=== PATIENT | male | born 1965 | race Caucasian/White ===

== ENCOUNTER 2020-10-23 08:30 | Outpatient (REF) | payer OTHER, SELFPAY ==
--- NOTE | 2020-10-23 09:16 | XR_ITS ---
EXAMINATION: BILATERAL KNEE X-RAY CLINICAL INFORMATION: Pain COMPARISON: Previous exams most recent June 2018 TECHNIQUE: 3 views of each knee FINDINGS: Right: Bone alignment is normal. No fracture or dislocation is seen and there is joint space narrowing at the medial femoral tibial joint. There are small osteophytes at the patellofemoral joint. There is a small joint effusion. Left: Bone alignment is normal. No fracture or dislocation is seen. There is joint space narrowing at the medial femoral tibial joint. There are osteophytes at the patellofemoral joint. There is an osteophyte at the quadriceps tendon insertion. There is a small joint effusion. XR/XR knee standing BI IMPRESSION: Bilateral arthritis and small joint effusions.
--- NOTE | 2020-10-23 09:16 | XR_ITS ---
EXAMINATION: BILATERAL KNEE X-RAY CLINICAL INFORMATION: Pain COMPARISON: Previous exams most recent June 2018 TECHNIQUE: 3 views of each knee FINDINGS: Right: Bone alignment is normal. No fracture or dislocation is seen and there is joint space narrowing at the medial femoral tibial joint. There are small osteophytes at the patellofemoral joint. There is a small joint effusion. Left: Bone alignment is normal. No fracture or dislocation is seen. There is joint space narrowing at the medial femoral tibial joint. There are osteophytes at the patellofemoral joint. There is an osteophyte at the quadriceps tendon insertion. There is a small joint effusion. XR/XR knee RT 2V IMPRESSION: Bilateral arthritis and small joint effusions.
--- NOTE | 2020-10-23 09:16 | XR_ITS ---
EXAMINATION: BILATERAL KNEE X-RAY CLINICAL INFORMATION: Pain COMPARISON: Previous exams most recent June 2018 TECHNIQUE: 3 views of each knee FINDINGS: Right: Bone alignment is normal. No fracture or dislocation is seen and there is joint space narrowing at the medial femoral tibial joint. There are small osteophytes at the patellofemoral joint. There is a small joint effusion. Left: Bone alignment is normal. No fracture or dislocation is seen. There is joint space narrowing at the medial femoral tibial joint. There are osteophytes at the patellofemoral joint. There is an osteophyte at the quadriceps tendon insertion. There is a small joint effusion. XR/XR knee LT 2V IMPRESSION: Bilateral arthritis and small joint effusions.
== END 2020-10-23 08:31 | disposition home or self-care (01) ==
LOC: HO.HOSX 08:30
PROVIDERS: Visit Provider Orthopaedic Surgery
DX: M25.561 Pain in right knee (principal); M25.562 Pain in left knee; M17.0 Bilateral primary osteoarthritis of knee
CPT/HCPCS: 20610; 73560; 73565; 99212; J1040

== ENCOUNTER 2021-09-20 07:29 | Outpatient (REF) | payer OTHER, SELFPAY ==
[2021-09-20 11:06] LABS: MANUAL DIFF FLAG NO
[2021-09-20 11:15] LABS: Basophils Percent Auto 0.6 % (0-2); Eosinophils Absolute Auto 0.3 X10*3/uL (0.0-0.4); Eosinophils Percent Auto 4.8 % (0-4); Hematocrit 41.9 % (42.0-52.0); Hemoglobin 14.1 g/dl (14.0-18.0); Imm Gran Abs Auto 0.01 X10*3/uL (0.00-0.03); Imm Gran Pct Auto 0.2 % (0.0-0.4); Lymphocytes Absolute Auto 2.7 X10*3/uL (1.2-4.9); Lymphocytes Percent Auto 40.7 % (20-40); Mean Corpuscular HGB Conc 33.7 g/dl (31.0-36.0); Mean Corpuscular Hemoglobin 30.6 pg (27.0-33.0); Mean Corpuscular Volume 90.9 fL (80.0-98.0); Mean Platelet Volume 9.4 fL (9.4-12.4); Monocytes Absolute Auto 0.5 X10*3/uL (0.1-1.2); Monocytes Percent Auto 8.2 % (2-11); Neutrophils Percent Auto 45.5 % (45-73); Platelet Count 290 X10*3/uL (160-400); Red Blood Count 4.61 X10*6/uL (4.60-5.80); Red Cell Distribution Width 11.7 % (11.0-16.0); White Blood Count 6.6 X10*3/uL (4.8-10.8)
[2021-09-20 11:42] LABS: Alanine Aminotransferase 16 U/L (0-40); Albumin Level 4.3 g/dL (3.5-5.0); Alkaline Phosphatase 62 U/L (39-117); Anion Gap 11 (12-20); Aspartate Amino Transferase 18 U/L (5-37); Bilirubin Total 0.9 mg/dL (0.0-1.0); Blood Urea Nitrogen 14 mg/dL (9-16); Calcium 9.4 mg/dL (8.4-10.2); Carbon Dioxide 26 mmol/L (22-29); Chloride 106 mmol/L (96-108); Cholesterol 211 mg/dL; Estimated Glomerular Filt Rate > 60; Glucose Fasting 103 mg/dL (60-99); HDL Cholesterol 63 mg/dL; LDL Cholesterol Calculated 133 mg/dl; Potassium 3.4 mmol/L (3.3-5.1); Sodium 140 mmol/L (135-145); Total Protein 6.8 g/dL (6.5-8.0); Triglycerides 76 mg/dL
[2021-09-20 11:49] LABS: Ferritin 580 ng/mL (20-250); Prostate Specific Antigen Scr 0.23 ng/mL (<0.05-4.0); TSH reflex Free T4 2.26 uIU/mL (0.32-4.0)
[2021-09-20 13:10] LABS: Appearance Urine CLEAR; Color Urine YELLOW; Glucose Urine UA NEG (NEG); Leukocyte Esterase Urine NEG (NEG); Nitrite Urine NEG (NEG); Specific Gravity - Urine >= 1.030 (1.005-1.025); Urine Blood NEG (NEG); Urine Ketones NEG (NEG); Urine Protein NEG (NEG-TRACE)
== END 2021-09-20 07:30 | disposition home or self-care (01) ==
LOC: HO.HMGCLDS 07:29
PROVIDERS: Visit Provider Nurse Practitioner Family
DX: Z00.00 Encounter for general adult medical examination without abnormal findings (principal); L29.9 Pruritus, unspecified; Z12.5 Encounter for screening for malignant neoplasm of prostate
CPT/HCPCS: 36415; 80053; 80061; 81003; 82728; 84153; 84443; 85025

== ENCOUNTER 2021-09-26 09:42 | Outpatient (REF) | payer OTHER, SELFPAY ==
[2021-09-26 13:02] LABS: Iron 110 mcg/dL (45-160); Percent Iron Saturation 41 % (15-50); Total Iron Binding Capacity 267 mcg/dL (228-428); Unsaturated Iron Binding 157 ug/dL
[2021-09-26 13:29] LABS: Ferritin 450 ng/mL (20-250)
== END 2021-09-26 09:43 | disposition home or self-care (01) ==
LOC: HO.HMGCLDS 09:42
PROVIDERS: PCP Nurse Practitioner Family; Visit Provider Nurse Practitioner Family
DX: R79.89 Other specified abnormal findings of blood chemistry (principal)
CPT/HCPCS: 36415; 81256; 82728; 83540

== ENCOUNTER 2021-10-01 11:45 | Outpatient (REF) | payer OTHER, SELFPAY | END 2021-10-01 11:46 | disposition home or self-care (01) | LOC: HO.LNP 11:45 | PROVIDERS: Visit Provider Physician Assistant Medical | DX: Z20.822 Contact with and (suspected) exposure to COVID-19 (principal); J01.90 Acute sinusitis, unspecified | CPT/HCPCS: U0003; U0005 ==

== ENCOUNTER 2021-10-11 09:15 | Outpatient (REF) | payer OTHER, SELFPAY ==
[2021-10-11 11:40] LABS: C Reactive Protein 0.55 mg/dL (< or = 0.50)
[2021-10-11 11:45] LABS: Erythrocyte Sedimentation Rate 5 MM/HR (0-15)
== END 2021-10-11 09:16 | disposition home or self-care (01) ==
LOC: HO.HMGCLDS 09:15
PROVIDERS: PCP Nurse Practitioner Family; Visit Provider Nurse Practitioner Family
DX: R79.89 Other specified abnormal findings of blood chemistry (principal)
CPT/HCPCS: 36415; 85652; 86140

== ENCOUNTER → 2021-11-17 14:48 | Outpatient (REF) | payer OTHER, SELFPAY ==
--- NOTE | 2021-11-17 14:51 | CA_ITS ---
Transthoracic Echocardiogram Patient (Last, First, Middle): Gurmeet Medina B Gender: Male Date of : 1965 Age: 56 Procedure Date: 11/17/2021 Procedure Type: Transthoracic Echocardiogram Location: OP Height: 175.26 cm Weight: 102.06 kg BSA: 2.17 m2 Heart Rate: bpm BP: 132 / 80 mmHg Infrastructure Engineer: KASEY Ugarte MD: Gil Garcia [facility] Surgical Sales Representative: Tre Al MD Symptoms: R01.1 - Cardiac murmur, unspecified Study Quality: Fair/Contrast ECG Rhythm: Sinus Conclusions: - 1. Normal LV systolic function with normal filling pattern 2. Normal cardiac valvular Doppler 3. Normal RV systolic pressure 4. No gross pericardial effusion Findings Procedure Information Contrast agent, definity, is being given per protocol without apparent complications. Left Ventricle Normal left ventricular size, thickness, and systolic function. The visually estimated ejection fraction is between 65-70%. Spectral Doppler is indicative of a normal filling pattern. Right Ventricle Normal right ventricular cavity size and systolic function. Atria The left atrium is normal in size. There is lipomatous hypertrophy of the interatrial septum. There is no evidence of interatrial shunt. The right atrium is normal in size. Aortic Valve The aortic valve structure and function is likely normal. There is no aortic valve stenosis. There is no aortic valve regurgitation. Mitral Valve Normal mitral valve structure and function. There is trace mitral valve regurgitation. There is no mitral valve stenosis. Pulmonic Valve The pulmonic valve was not well visualized. Tricuspid Valve Likely normal tricuspid valve structure and function. There is trace tricuspid valve regurgitation. The right ventricular systolic pressure is normal. The right ventricular systolic pressure is 22 mmHg. Normal right atrial pressure. There is no evidence of pulmonary hypertension. Great Vessels All visible segments of the aorta are normal in size. The pulmonary artery was not well visualized. Venous The inferior vena cava is normal in size and collapses greater than 50% with inspiration. Pericardium/Pleural There is no evidence of pericardial effusion. Prior Study Comparison No previous study in the last 5 years for comparison Measurements 2D Linear Measurements IVSd: 0.97 0.6-0.9/0.6-1.0 cm LVIDd: 4.77 3.9-5.3/4.2-5.9 cm LVIDd Index: 2.20 2.4-3.2/2.2-3.1 cm/m2 LVIDs: 3.06 2.0-3.6 cm LVPWd: 0.87 0.7-1.1 cm Ao Root: 3.20 2.1-3.5 cm LA Diam: 3.40 2.7-3.8/3.0-4.0 cm LAIDs Index: 1.57 1.5-2.3 cm/m2 LV Mass: 187.35 67-162/88-224 g LV Mass Index: 86.34 43-95/49-115 g/m2 LVOT Diam: 2.00 3.0+(-)1.3 cm 2D Systolic Function EF 4C: 68.00 >55% EF 2C: 64.70 >55% EF BiP: 66.40 >55% Mitral Valve MV Pk E: 1.13 MV PK A: 0.95 MV Decel Time: 172.00 E/A: 1.20 E'Lateral: 13.50 E'Medial: 10.40 E/E' Med: 10.90 E/E' Lat: 8.40 PHT: 50.00 MVA PHT: 4.40 Decel [place]: 6.59 Aortic Valve AoV Pk Nuno: 1.42 AoV Mn Nuno: 0.95 AoV VTI: 0.27 AoV Pk Grad: 8.00 Aov Mn Grad: 4.00 CRISTIAN Cont.VTI: 3.08 LVOT LVOT Pk Nuno: 1.63 LVOT Mn Nuno: 0.92 LVOT VTI: 0.27 LVOT Pk Grad: 11.00 LVOT Mn Grad: 4.00 LVOT Diam: 2.00 LVOT Area: 3.14 Diastolic Function MV Pk E: 1.13 MV Pk A: 0.95 E/A: 1.20 E'Medial: 10.40 E/E' Med: 10.90 E' Laterial: 13.50 E/E' Lat: 8.40 Right Ventricle TAPSE (mm): 21.00 TVS' Nuno: 17.00 Tricuspid Valve TR Pk Nuno: 2.20 TR Pk Grad: 19.00 RA Press: 3.00 RVSP: 22.00 Great Vessels Aorta Ao Root-2D: 3.20 2.0-3.7 cm Ao Asc: 3.30 2.1-3.4 cm Ao Arch: 2.60 Updated in Other Vendor System with Status of Final Tre Al MD electronically signed on 11/18/2021 11:34:40 AM with status of Final
== END ==
LOC: HO.CARD 14:48
PROVIDERS: PCP Nurse Practitioner Family; Visit Provider Nurse Practitioner Family
DX: R01.1 Cardiac murmur, unspecified (principal)
CPT/HCPCS: 93306; Q9957

== ENCOUNTER 2021-11-30 14:49 | Emergency (ER) | payer OTHER, SELFPAY ==
--- NOTE | ~2021-11-30 | XR_ITS ---
EXAMINATION: XR CHEST CLINICAL INFORMATION: Shortness of breath COMPARISON: 3. TECHNIQUE: 2 views of the chest were obtained. FINDINGS: Normal symmetric lung volumes. No parenchymal consolidation. No pleural effusion. No pneumothorax. Cardiomediastinal silhouette and pulmonary vascularity are within normal limits. No acute osseous abnormalities. XR/XR chest 2V IMPRESSION: Unremarkable examination.
[2021-11-30 15:05] VITALS: BP 141/92; PULSE 88; RESP 18; TEMP 36.6; O2SAT 99; BMI 29.1
[2021-11-30 15:34] LABS: COVID-19 Test Negative (Negative)
--- NOTE | 2021-11-30 16:20 | ECG_ITS ---
Test Reason : chest tightness Blood Pressure : / mmHG Vent. Rate : 076 BPM Atrial Rate : 076 BPM P-R Int : 150 ms QRS Dur : 088 ms QT Int : 374 ms P-R-T Axes : 002 -07 014 degrees QTc Int : 420 ms Normal sinus rhythm Normal ECG When compared with ECG of 06-NOV-2014 17:55, Nonspecific T wave abnormality no longer evident in Anterior leads Referred By: Laila Jamse Electronically Signed By:Shane Cuenca
--- NOTE | 2021-11-30 16:20 | ED_ITS ---
HPI - General Adult General Chief complaint: General Medical Stated complaint: Chest tightness Source: patient Mode of arrival: ambulatory Limitations: no limitations History of Present Illness HPI narrative: 56-year-old male presents with a report of chest tightness and difficulty swallowing. Stated that he had an upper endoscopy at the [facility] last week and that his swallowing has not been right since. Also feels some chest tightness. He does not report any palpitations, dizziness, lightheadedness, sh ortness of breath, shortness breath on exertion, edema, or any difficulty eating and drinking. Last p.o. intake was just prior to his presentation to the emergency department. Onset (ago): week(s) (1) Location: neck and chest Radiation: non-radiation Severity: mild Severity scale (1-10): 3 Quality: constant and other (Tight) Pain Consistency: constant and intermittent Relieving factors: none Exacerbating factors: none Associated symptoms: denies other symptoms Treatments prior to arrival: none Related Data Previous Rx's Medication Instructions Recorded diltiazem HCl 240 mg 240 mg PO DAILY #90 cap 09/17/21 capsule,extended release 24 hr (Cartia XT) montelukast 10 mg tablet 10 mg PO QPM 90 Days #90 tab 09/17/21 (Singulair) halobetasol propionate 0.05 % 1 appl TOPICAL DAILY 30 Days #50 g 09/22/21 topical ointment ibuprofen 800 mg tablet 800 mg PO Q8H PRN 30 Days #90 tab 09/22/21 betamethasone dipropionate 0.05 % 1 appl TOPICAL DAILY PRN 14 Days 09/29/21 topical cream #45 g albuterol sulfate 90 mcg/actuation 2 puff INHALATION Q6H PRN #6.7 g 10/01/21 aerosol inhaler (Ventolin HFA) doxycycline hyclate 100 mg tablet 100 mg PO BID 7 Days #14 tab 10/01/21 prednisone 50 mg tablet 50 mg PO DAILY 5 Days #5 tab 10/01/21 tiotropium bromide 1.25 2 puff INHALATION BEDTIME 30 Days 10/11/21 mcg/actuation mist for inhalation #4 g (Spiriva Respimat) loratadine 10 mg tablet (Claritin) 10 mg PO DAILY #30 tab 11/30/21 Allergies Allergy/AdvReac Type Severity Reaction Status Date / Time Biaxin Allergy Unknown shortness Verified 11/30/21 15:05 of breath penicillin G [PENICILLIN G] Allergy Unknown RASH Verified 11/30/21 15:05 penicillin V Allergy Unknown hives Verified 11/30/21 15:05 Review of Systems Review of Systems: Constitutional: No Fever, No Chills ENT/Mouth: Positive difficulty swallowing, positive postnasal drip, No sore throat, No Rhinorrhea Eyes: No Eye Pain, No Swelling, No Redness Cardiovascular: Positive Chest tightness, No SOB Respiratory: No Cough, No Sputum Gastrointestinal: No Nausea, No Vomiting, No Diarrhea, No abdominal Pain Genitourinary: No Dysuria, No Hematuria Musculoskeletal: No joint pain, No Myalgias, No Joint Swelling Skin: No Skin Lesions, No rash Neuro: No Weakness, No Numbness, No Loss of Consciousness, No Dizziness, No Headache Psych: No Anxiety, No Depression, No SI/HI/AH/VH Heme/Lymph: No Bruising, No Bleeding,No Lymphadenopathy Endocrine: No Polyuria, No Polydipsia Yes all other systems are reviewed and are negative [facility] Past Medical History Attestation statement: The following information was validated with the patient. 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 Oriented X3. No acute distress. Eyes: Pupils equal, round and reactive to light. EOMI. Sclera nonicteric. ENT: Pharynx normal. Moist mucous membranes. Neck: Normal inspection. Neck supple. CVS: Normal heart rate and rhythm. Apical pulse equal to pulses to extremities. Respiratory: No respiratory distress. Breath sounds normal. Abdomen: Soft and nontender. Skin: Skin warm and dry. Normal skin color. Normal skin turgor. Extremities: No lower extremity edema. Gait well-balanced well coordinated. Neuro: No motor deficit. No sensory deficit. Cranial nerves 2-12 intact. Course Course Course Narrative: 56-year-old male presents with multiple complaints. States that he has some chest tightness that radiates substernally and is bilaterally equal. Does not radiate up his neck or down his arms, no history of prior ACS, does report a murmur which I do not appreciate on auscultation. Patient does report difficulty swallowing, does not feel like there is an obstruction as he is not complaining of things getting stuck in his esophagus. He is able to eat full meals and drink without difficulty. He did have an upper endoscopy at the [facility] last week where they took biopsies. He has had this difficulty swallo wing and constant throat clearing off and on for months. Will order EKG, labs to rule out ACS. Will give Maalox for suspected GERD like symptoms. 18:50 lab values are unremarkable, troponins are negative. Chest x-ray is negative for acute findings requiring emergent intervention. EKG is normal sinus. Plan of care is for patient to follow-up with gastroenterology as he did have an EGD approximately 2 weeks ago. His airways patent, does not have any tracheal stridor, has been eating and drinking while in the emergency department. For postnasal drip will try Claritin as he is on montelukast nightly. Patient verbalized understanding of and agrees to plan of care discharge home. Verbalized understanding of signs and symptoms indicating need for emergent intervention Medical Decision Making Differential Diagnosis Differential Diagnosis: ACS, pneumonia, GERD Medical Records Medical records reviewed: Yes I reviewed the patient's medical records. Lab Data Lab results reviewed: Yes I reviewed the patient's lab results. Result diagrams: 11/30/21 17:14 11/30/21 17:14 Labs: Lab Results 11/30/21 11/30/21 11/30/21 Range/Units 15:12 17:14 17:14 WBC 7.6 (4.8-10.8) X10*3/uL RBC 4.78 (4.60-5.80) X10*6/uL Hgb 14.6 (14.0-18.0) g/dl Hct 42.5 (42.0-52.0) % MCV 88.9 (80.0-98.0) fL MCH 30.5 (27.0-33.0) pg MCHC 34.4 (31.0-36.0) g/dl RDW 11.8 (11.0-16.0) % Plt Count 272 (160-400) X10*3/uL MPV 8.7 L (9.4-12.4) fL Immature Gran % (Auto) 0.1 (0.0-0.4) % Neut % (Auto) 67.5 (45-73) % Lymph % (Auto) 24.3 (20-40) % [place] % (Auto) 6.4 (2-11) % Eos % (Auto) 1.2 (0-4) % Baso % (Auto) 0.5 (0-2) % Lymph # (Auto) 1.9 (1.2-4.9) X10*3/uL [place] # (Auto) 0.5 (0.1-1.2) X10*3/uL Eos # (Auto) 0.1 (0.0-0.4) X10*3/uL Baso # (Auto) 0.0 (0.0-0.2) X10*3/uL Abs Immat Gran (auto) 0.01 (0.00-0.03) X10*3/uL Absolute Neuts (auto) 5.1 (2.0-8.3) x10*3/uL Absolute Nucleated RBC 0.000 (0.0-0.012) X10*3/uL Nucleated RBC % (auto) 0.0 (0.0-0.2) /100WBC Sodium 139 (135-145) mmol/L Potassium 4.4 D (3.3-5.1) mmol/L Chloride 104 (96-108) mmol/L Carbon Dioxide 25 (22-29) mmol/L Anion Gap 14 (12-20) BUN 13 (9-16) mg/dL Creatinine 0.99 (0.5-1.4) mg/dL Estim Creat Clear Calc 91.9 Estimated GFR > 60 Random Glucose 103 (60-115) mg/dL Calcium 10.3 H D (8.4-10.2) mg/dL Troponin I High Sens (<3.5-35.0) ng/L COVID-19 (PATIENCE) Negative (Negative) COVID-19 Clin Com See Note 11/30/21 Range/Units 17:14 WBC (4.8-10.8) X10*3/uL RBC (4.60-5.80) X10*6/uL Hgb (14.0-18.0) g/dl Hct (42.0-52.0) % MCV (80.0-98.0) fL MCH (27.0-33.0) pg MCHC (31.0-36.0) g/dl RDW (11.0-16.0) % Plt Count (160-400) X10*3/uL MPV (9.4-12.4) fL Immature Gran % (Auto) (0.0-0.4) % Neut % (Auto) (45-73) % Lymph % (Auto) (20-40) % [place] % (Auto) (2-11) % Eos % (Auto) (0-4) % Baso % (Auto) (0-2) % Lymph # (Auto) (1.2-4.9) X10*3/uL [place] # (Auto) (0.1-1.2) X10*3/uL Eos # (Auto) (0.0-0.4) X10*3/uL Baso # (Auto) (0.0-0.2) X10*3/uL Abs Immat Gran (auto) (0.00-0.03) X10*3/uL Absolute Neuts (auto) (2.0-8.3) x10*3/uL Absolute Nucleated RBC (0.0-0.012) X10*3/uL Nucleated RBC % (auto) (0.0-0.2) /100WBC Sodium (135-145) mmol/L Potassium (3.3-5.1) mmol/L Chloride (96-108) mmol/L Carbon Dioxide (22-29) mmol/L Anion Gap (12-20) BUN (9-16) mg/dL Creatinine (0.5-1.4) mg/dL Estim Creat Clear Calc Estimated GFR Random Glucose (60-115) mg/dL Calcium (8.4-10.2) mg/dL Troponin I High Sens < 3.5 (<3.5-35.0) ng/L COVID-19 (PATIENCE) (Negative) COVID-19 Clin Com Imaging Data Chest x-ray: Attestation: I personally reviewed and interpreted this imaging study as follows: Radiologist's impression: EXAMINATION: XR CHEST CLINICAL INFORMATION: Shortness of breath COMPARISON: . TECHNIQUE: 2 views of the chest were obtained. FINDINGS: Normal symmetric lung volumes. No parenchymal consolidation. No pleural effusion. No pneumothorax.? Cardiomediastinal silhouette and pulmonary vascularity are within normal limits. No acute osseous abnormalities. XR/XR chest 2V IMPRESSION: Unremarkable examination. ECG Data Attestation: I personally reviewed and interpreted this ECG as follows: Prior ECG tracings: available for review Interpretation: Vent. rate 76 BPM OK interval 150 ms QRS duration 88 ms QT/QTc 374/420 ms P-R-T axes 2 -7 14 Normal sinus rhythm Normal ECG When compared with ECG of 06-NOV-2014 17:55, Nonspecific T wave abnormality no longer evident in Anterior leads 30-NOV-2021 16:45:57 Discharge Plan Discharge Clinical Impression: Post-nasal drip, Gastroesophageal reflux disease Patient Disposition: Home, Self-Care Instructions: Allergic Rhinitis (DC), Gastroesophageal Reflux Disease (ED), Postnasal Drip (DC) Additional Instructions: You were evaluated for chest tightness and esophageal irritation. Chest x-ray is negative for acute findings. EKG is normal sinus rhythm. Lab values are all within normal limits. Please return to your reconstructive surgeon, the person that performed your upper endoscopy 2 weeks ago for further workup. Please take Claritin daily to help with postnasal drip symptoms. I referred to reconstructive surgeon Dr. Manley. Please call and request an appointment for evaluation. Thank you for choosing this emergency department for evaluation. Please follow-up with primary care physician as needed. Return to the emergency department for any new, concerning, or worsening symptoms. Prescriptions: New loratadine [Claritin] 10 mg tablet 10 mg PO DAILY Qty: 30 0RF No Action halobetasol propionate 0.05 % ointment 1 appl topical DAILY 30 Days Qty: 50 2RF ibuprofen 800 mg tablet 800 mg PO Q8H PRN (Reason: pain) 30 Days Qty: 90 1RF betamethasone dipropionate 0.05 % cream 1 appl topical DAILY PRN (Reason: skin irritation) 14 Days Qty: 45 1RF Spiriva Respimat 1.25 mcg/actuation mist 2 puff inhalation BEDTIME 30 Days Qty: 4 0RF diltiazem HCl [Cartia XT] 240 mg capsule,extended release 24hr 240 mg PO DAILY Qty: 90 2RF montelukast [Singulair] 10 mg tablet 10 mg PO QPM 90 Days Qty: 90 2RF doxycycline hyclate 100 mg tablet 100 mg PO BID 7 Days Qty: 14 0RF prednisone 50 mg tablet 50 mg PO DAILY 5 Days Qty: 5 0RF albuterol sulfate [Ventolin HFA] 90 mcg/actuation HFA aerosol inhaler 2 puff inhalation Q6H PRN (Reason: shortness of breath or wheezing) Qty: 6.7 0RF Referrals: Mike Manley [Physician] - 2 days (Esophageal irritation consistent with GERD)
[2021-11-30 16:44] VITALS: BP 144/81; PULSE 74; RESP 16; TEMP 36.9; O2SAT 99
[2021-11-30] MEDS: Magnesium Hydrox/Alum Hydrox 30 ML ORAL.SUSP PO (17:17)
[2021-11-30 17:18] LABS: MANUAL DIFF FLAG NO
[2021-11-30 17:20] LABS: Basophils Percent Auto 0.5 % (0-2); Eosinophils Absolute Auto 0.1 X10*3/uL (0.0-0.4); Eosinophils Percent Auto 1.2 % (0-4); Hematocrit 42.5 % (42.0-52.0); Hemoglobin 14.6 g/dl (14.0-18.0); Imm Gran Abs Auto 0.01 X10*3/uL (0.00-0.03); Imm Gran Pct Auto 0.1 % (0.0-0.4); Lymphocytes Absolute Auto 1.9 X10*3/uL (1.2-4.9); Lymphocytes Percent Auto 24.3 % (20-40); Mean Corpuscular HGB Conc 34.4 g/dl (31.0-36.0); Mean Corpuscular Hemoglobin 30.5 pg (27.0-33.0); Mean Corpuscular Volume 88.9 fL (80.0-98.0); Mean Platelet Volume 8.7 fL (9.4-12.4); Monocytes Absolute Auto 0.5 X10*3/uL (0.1-1.2); Monocytes Percent Auto 6.4 % (2-11); Neutrophils Absolute Auto 5.1 x10*3/uL (2.0-8.3); Neutrophils Percent Auto 67.5 % (45-73); Platelet Count 272 X10*3/uL (160-400); Red Blood Count 4.78 X10*6/uL (4.60-5.80); Red Cell Distribution Width 11.8 % (11.0-16.0); White Blood Count 7.6 X10*3/uL (4.8-10.8)
[2021-11-30 17:36] LABS: Anion Gap 14 (12-20); Blood Urea Nitrogen 13 mg/dL (9-16); Calcium 10.3 mg/dL (8.4-10.2); Carbon Dioxide 25 mmol/L (22-29); Chloride 104 mmol/L (96-108); Creatinine Clr Calc Pharmacy 91.9; Estimated Glomerular Filt Rate > 60; Glucose Random 103 mg/dL (60-115); Potassium 4.4 mmol/L (3.3-5.1); Sodium 139 mmol/L (135-145)
[2021-11-30 17:43] LABS: Troponin-I High Sensitivity < 3.5 ng/L (<3.5-35.0)
[2021-11-30 18:45] VITALS: BP 145/69; PULSE 90; RESP 17; O2SAT 98
[2021-11-30] MEDS: Loratadine 10 MG TABLET PO (19:17)
[2021-11-30] MEDS: Lidocaine HCl Viscous 2 % 15 ML SOLUTION MUCOUS MEM (19:17)
== END 2021-11-30 19:30 | disposition home or self-care (01) ==
PROVIDERS: Nurse Practitioner Family; Emergency Provider Internal Medicine; PCP Nurse Practitioner Family
DX: K21.9 Gastro-esophageal reflux disease without esophagitis (principal); R07.9 Chest pain, unspecified; R09.82 Postnasal drip; Z79.899 Other long term (current) drug therapy; Z20.822 Contact with and (suspected) exposure to COVID-19
CPT/HCPCS: 36415; 71046; 80048; 84484; 85025; 87635; 93005; 99283

== ENCOUNTER 2021-12-23 18:26 | Emergency (ER) | payer OTHER, SELFPAY ==
[2021-12-23 18:36] VITALS: BP 163/79; PULSE 78; RESP 18; TEMP 36.2; O2SAT 100; BMI 27.2
[2021-12-23 20:36] LABS: MANUAL DIFF FLAG NO
[2021-12-23 20:38] LABS: Basophils Percent Auto 0.5 % (0-2); Eosinophils Absolute Auto 0.1 X10*3/uL (0.0-0.4); Eosinophils Percent Auto 1.1 % (0-4); Hematocrit 39.1 % (42.0-52.0); Hemoglobin 13.3 g/dl (14.0-18.0); Imm Gran Abs Auto 0.02 X10*3/uL (0.00-0.03); Imm Gran Pct Auto 0.3 % (0.0-0.4); Lymphocytes Absolute Auto 2.4 X10*3/uL (1.2-4.9); Lymphocytes Percent Auto 31.4 % (20-40); Mean Corpuscular Hemoglobin 29.9 pg (27.0-33.0); Mean Corpuscular Volume 87.9 fL (80.0-98.0); Monocytes Absolute Auto 0.6 X10*3/uL (0.1-1.2); Monocytes Percent Auto 8.3 % (2-11); Neutrophils Absolute Auto 4.5 x10*3/uL (2.0-8.3); Neutrophils Percent Auto 58.4 % (45-73); Platelet Count 256 X10*3/uL (160-400); Red Blood Count 4.45 X10*6/uL (4.60-5.80); Red Cell Distribution Width 11.7 % (11.0-16.0); White Blood Count 7.6 X10*3/uL (4.8-10.8)
[2021-12-23 20:50] LABS: Anion Gap 13 (12-20); Blood Urea Nitrogen 14 mg/dL (9-16); Calcium 9.8 mg/dL (8.4-10.2); Carbon Dioxide 26 mmol/L (22-29); Chloride 105 mmol/L (96-108); Creatinine Clr Calc Pharmacy 113.2; Estimated Glomerular Filt Rate > 60; Glucose Random 105 mg/dL (60-115); Sodium 140 mmol/L (135-145)
--- NOTE | 2021-12-23 21:54 | ED_ITS ---
HPI - General Adult General Chief complaint: General Medical Stated complaint: diff swallowing Time Seen by Provider: 12/23/21 21:54 Source: patient Mode of arrival: ambulatory Limitations: no limitations History of Present Illness HPI narrative: Patient with increased anxiety difficulty swallowing for the last 2 years been to [facility] last month had seen by ENT and did not notice any abnormality in the throat patient comes here is still having the feeling very anxious on arrival has plan to see dial refinisher able to swallow his saliva and eat solids but feel that throat is collapsing when he eats Related Data Previous Rx's Medication Instructions Recorded diltiazem HCl 240 mg 240 mg PO DAILY #90 cap 09/17/21 capsule,extended release 24 hr (Cartia XT) montelukast 10 mg tablet 10 mg PO QPM 90 Days #90 tab 09/17/21 (Singulair) ibuprofen 800 mg tablet 800 mg PO Q8H PRN 30 Days #90 tab 09/22/21 loratadine 10 mg tablet (Claritin) 10 mg PO DAILY #30 tab 11/30/21 famotidine 20 mg tablet 20 mg PO BID 30 Days #60 tab 12/15/21 Allergies Allergy/AdvReac Type Severity Reaction Status Date / Time Biaxin Allergy Unknown shortness Verified 12/23/21 18:39 of breath penicillin G [PENICILLIN G] Allergy Unknown RASH Verified 12/23/21 18:39 penicillin V Allergy Unknown hives Verified 12/23/21 18:39 Review of Systems Review of Systems: Yes all other systems are reviewed and are negative PMFSH Past Medical History Medical History Allergies COVID-19 Hypertension Social History Social History Patient Tobacco Use Status: Never used Tobacco e-Cigarette/Vaping Use: Never Used Second Hand Smoke Exposure: No Current occupational status: employed 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 Oriented X3. No acute distress. Very anxious Eyes: No pallor/ icterus ENT: Pharynx normal. Oral Mucosa moist Neck: Normal inspection. Neck supple. No stridor CVS: Normal heart rate and rhythm. Pulses normal. Respiratory: No respiratory distress. Equal air entry bilateral, no wheez ing/rales/rhonchi Abdomen: Soft and nontender. Bowel sounds are present, Skin: Skin warm and dry. Normal skin color. Normal skin turgor. Neuro: Oriented X 3. Medical Decision Making Lab Data Result diagrams: 12/23/21 20:32 12/23/21 20:32 Labs: Lab Results 12/23/21 12/23/21 Range/Units 20:32 20:32 WBC 7.6 (4.8-10.8) X10*3/uL RBC 4.45 L (4.60-5.80) X10*6/uL Hgb 13.3 L (14.0-18.0) g/dl Hct 39.1 L (42.0-52.0) % MCV 87.9 (80.0-98.0) fL MCH 29.9 (27.0-33.0) pg MCHC 34.0 (31.0-36.0) g/dl RDW 11.7 (11.0-16.0) % Plt Count 256 (160-400) X10*3/uL MPV 9.0 L (9.4-12.4) fL Immature Gran % (Auto) 0.3 (0.0-0.4) % Neut % (Auto) 58.4 (45-73) % Lymph % (Auto) 31.4 (20-40) % [place] % (Auto) 8.3 (2-11) % Eos % (Auto) 1.1 (0-4) % Baso % (Auto) 0.5 (0-2) % Lymph # (Auto) 2.4 (1.2-4.9) X10*3/uL [place] # (Auto) 0.6 (0.1-1.2) X10*3/uL Eos # (Auto) 0.1 (0.0-0.4) X10*3/uL Baso # (Auto) 0.0 (0.0-0.2) X10*3/uL Abs Immat Gran (auto) 0.02 (0.00-0.03) X10*3/uL Absolute Neuts (auto) 4.5 (2.0-8.3) x10*3/uL Absolute Nucleated RBC 0.000 (0.0-0.012) X10*3/uL Nucleated RBC % (auto) 0.0 (0.0-0.2) /100WBC Sodium 140 (135-145) mmol/L Potassium 4.0 (3.3-5.1) mmol/L Chloride 105 (96-108) mmol/L Carbon Dioxide 26 (22-29) mmol/L Anion Gap 13 (12-20) BUN 14 (9-16) mg/dL Creatinine 0.79 (0.5-1.4) mg/dL Estim Creat Clear Calc 113.2 Estimated GFR > 60 Random Glucose 105 (60-115) mg/dL Calcium 9.8 (8.4-10.2) mg/dL Discharge Plan Discharge Clinical Impression: Globus hystericus Patient Disposition: Home, Self-Care Instructions: Esophageal Spasm (ED) Additional Instructions: Continue taking medication and follow up with dial refinisher Prescriptions: No Action ibuprofen 800 mg tablet 800 mg PO Q8H PRN (Reason: pain) 30 Days Qty: 90 1RF loratadine [Claritin] 10 mg tablet 10 mg PO DAILY Qty: 30 0RF diltiazem HCl [Cartia XT] 240 mg capsule,extended release 24hr 240 mg PO DAILY Qty: 90 2RF montelukast [Singulair] 10 mg tablet 10 mg PO QPM 90 Days Qty: 90 2RF famotidine 20 mg tablet 20 mg PO BID 30 Days Qty: 60 3RF Referrals: George Herman MD [Physician] - 2 days Interventions: ED Discharge Assessment Last Done: 12/23/21 23:23 Discharge Date/Time: 12/23/21 23:23
[2021-12-23 21:58] VITALS: BP 144/78; PULSE 100; RESP 18; O2SAT 99
[2021-12-23] MEDS: Magnesium Hydrox/Alum Hydrox 30 ML ORAL.SUSP PO (22:15)
[2021-12-23] MEDS: Lidocaine HCl Viscous 2 % 15 ML SOLUTION MUCOUS MEM (22:15)
== END 2021-12-23 23:23 | disposition home or self-care (01) ==
PROVIDERS: Emergency Provider Internal Medicine; PCP Nurse Practitioner Family
DX: F45.8 Other somatoform disorders (principal); F41.9 Anxiety disorder, unspecified; I10 Essential (primary) hypertension; K21.9 Gastro-esophageal reflux disease without esophagitis
CPT/HCPCS: 36415; 80048; 85025; 99283

== ENCOUNTER 2021-12-24 07:44 | Outpatient (REF) | payer OTHER, SELFPAY ==
[2021-12-24 11:25] LABS: MANUAL DIFF FLAG NO
[2021-12-24 11:46] LABS: Basophils Percent Auto 0.5 % (0-2); Eosinophils Absolute Auto 0.1 X10*3/uL (0.0-0.4); Eosinophils Percent Auto 2.1 % (0-4); Hematocrit 42.9 % (42.0-52.0); Hemoglobin 14.3 g/dl (14.0-18.0); Imm Gran Abs Auto 0.01 X10*3/uL (0.00-0.03); Imm Gran Pct Auto 0.2 % (0.0-0.4); Lymphocytes Absolute Auto 1.7 X10*3/uL (1.2-4.9); Lymphocytes Percent Auto 27.4 % (20-40); Mean Corpuscular HGB Conc 33.3 g/dl (31.0-36.0); Mean Corpuscular Hemoglobin 29.9 pg (27.0-33.0); Mean Corpuscular Volume 89.7 fL (80.0-98.0); Mean Platelet Volume 9.6 fL (9.4-12.4); Monocytes Absolute Auto 0.5 X10*3/uL (0.1-1.2); Monocytes Percent Auto 8.1 % (2-11); Neutrophils Absolute Auto 3.9 x10*3/uL (2.0-8.3); Neutrophils Percent Auto 61.7 % (45-73); Platelet Count 287 X10*3/uL (160-400); Red Blood Count 4.78 X10*6/uL (4.60-5.80); Red Cell Distribution Width 11.8 % (11.0-16.0); White Blood Count 6.3 X10*3/uL (4.8-10.8)
[2021-12-24 12:16] LABS: Alanine Aminotransferase 17 U/L (0-40); Albumin Level 4.6 g/dL (3.5-5.0); Alkaline Phosphatase 57 U/L (39-117); Anion Gap 13 (12-20); Aspartate Amino Transferase 19 U/L (5-37); Bilirubin Total 0.9 mg/dL (0.0-1.0); Blood Urea Nitrogen 11 mg/dL (9-16); Calcium 9.7 mg/dL (8.4-10.2); Carbon Dioxide 26 mmol/L (22-29); Chloride 106 mmol/L (96-108); Cholesterol 201 mg/dL; Estimated Glomerular Filt Rate > 60; Glucose Fasting 106 mg/dL (60-99); HDL Cholesterol 63 mg/dL; LDL Cholesterol Calculated 127 mg/dl; Potassium 3.6 mmol/L (3.3-5.1); Sodium 141 mmol/L (135-145); TSH reflex Free T4 2.28 uIU/mL (0.32-4.0); Total Protein 7.1 g/dL (6.5-8.0); Triglycerides 56 mg/dL
== END 2021-12-24 07:45 | disposition home or self-care (01) ==
LOC: HO.HMGCLDS 07:44
PROVIDERS: Visit Provider Nurse Practitioner Family
DX: K21.9 Gastro-esophageal reflux disease without esophagitis (principal)
CPT/HCPCS: 36415; 80053; 80061; 84443; 85025

== ENCOUNTER 2021-12-25 12:42 | Outpatient (REF) | payer OTHER, SELFPAY ==
[2021-12-25 13:47] LABS: Blood Urea Nitrogen 14 mg/dL (9-16); Estimated Glomerular Filt Rate > 60
== END 2021-12-25 12:43 | disposition home or self-care (01) ==
LOC: HO.LAB 12:42
PROVIDERS: PCP Nurse Practitioner Family; Visit Provider Internal Medicine
DX: R07.0 Pain in throat (principal); R06.02 Shortness of breath
CPT/HCPCS: 36415; 82565; 84520

== ENCOUNTER 2022-01-07 07:40 | Outpatient (REF) | payer OTHER, SELFPAY ==
--- NOTE | ~2022-01-07 | CT_ITS ---
EXAMINATION: CT chest w con. CLINICAL INFORMATION: Reason for Exam SHORTNESS OF BREATH, PAIN IN THROAT COMPARISON: No prior CT available for comparison. TECHNIQUE: Multidetector volumetric CT imaging of the chest was done. Axial MIP volume rendering provided. Sagittal and coronal reformatted images were obtained. This CT examination was performed using dose optimization techniques as appropriate, variously including the following: *Automated exposure control *Adjustment of mA and/or kV according to patient size (this includes techniques or standardized protocols for targeted exams where dose is matched to indication/reason for exam; i.e. extremities or head) *Use of iterative reconstruction technique CONTRAST: 80 mL of contrast Omnipaque 350 injected. DLP: 295 mGy-cm FINDINGS: LEAD NUCLEAR MEDICINE TECHNOLOGIST: LINES/TUBES: Legal Billing Coordinator reviewed, no lines. LUNGS: Lung parenchyma: No evidence of significant interstitial disease. Lung nodules/masses: There is no suspicious lung mass. There are few scattered tiny lung nodules largest is a 4 mm nodule in the right lower lobe. AIRWAYS: Trachea and bronchi are normal. PLEURA: No pleural effusion or pneumothorax. MEDIASTINUM AND MICHAEL: There is an enlarged lymph node in the left axilla measuring 1.4 x 2.3 cm image 22 series of 3, uncertain etiology. Few other scattered lymph nodes in the right axilla and mediastinum are normal in size by CT criteria. No mediastinal mass. VESSELS: HEART AND PERICARDIUM: Thoracic aorta is normal in size. Heart is normal in size. No pericardial effusion. Pulmonary arteries are normal in size. LOWER NECK: The visualized thyroid gland is unremarkable. VISUALIZED ABDOMEN: Unremarkable CHEST WALL AND BONES: No chest wall mass. There is a fluid-filled cystic structure medial to the left shoulder 2.7 x 2.1 cm could be a synovial cyst not well characterized on CT scan. This may require further investigation with follow-up MRI shoulder. CT/CT chest w con IMPRESSION: *No suspicious lung mass or suspicious nodules. *There are few scattered tiny lung densities measuring 4 mm or less. Largest right lower lobe. *AN ENLARGED LYMPH NODE FOUND IN THE LEFT AXILLA 2.3 cm, uncertain etiology could be metastatic or primary versus reactive inflammatory. Please correlate with the clinical exam, consider evaluation with ultrasound. *Low-attenuation 2.7 cm left subacromial structure just medial to the left shoulder could be a cyst, could be a synovial origin, consider evaluation with follow-up shoulder MRI. Various management parameters for solitary pulmonary nodules are in the literature. According to the UPDATED 2017 Fleischner Society recommendations, the advised follow-up imaging for solid nodules < 6 mm is: LOW RISK PATIENT: No routine follow-up. HIGH RISK PATIENT: Optional CT at 12 months. Reference: Guidelines for Management of Incidental Pulmonary Nodules Detected on CT Images: From the Fleischner Society 2017. (Referring physician staff is being called, to be alerted of the above findings and recommendations.) DC
--- NOTE | ~2022-01-07 | CT_ITS ---
CT SOFT TISSUE NECK WITH CONTRAST CLINICAL INFORMATION: Pain in the throat. COMPARISON: None available. TECHNIQUE: Following the intravenous administration of 80 mL of Omnipaque 350 intravenous contrast, helical imaging was performed in the axial plane with generation of coronal and sagittal reformatted images. This CT examination was performed using dose optimization techniques as appropriate, variously including the following: *Automated exposure control *Adjustment of mA and/or kV according to patient size (this includes techniques or standardized protocols for targeted exams where dose is matched to indication/reason for exam; i.e. extremities or head) *Use of iterative reconstruction technique FINDINGS: No cervical lymphadenopathy. The parotid glands are homogeneous in attenuation. The submandibular glands are normal. The thyroid gland is normal. No contour abnormality or pathologic enhancement is seen within the oral cavity or pharyngeal mucosal space. No retropharyngeal fluid collection is seen. The laryngeal structures are normal. The parapharyngeal fat is preserved. The carotid sheath vasculature opacify normally. No extra mucosal soft tissue mass or fluid collection is seen. The superior mediastinum is unremarkable. The lung apices are clear. The mastoid air cells and visualized portions of the paranasal sinuses are well-aerated. Partially imaged thoracic spondylosis. Mild cervical spondylosis. No suspicious nor acute osseous findings. The imaged portions of the brain parenchyma are unremarkable. CT/CT soft tissue neck w con IMPRESSION: No acute soft tissue findings. No definite structural explanation for the patient's symptoms identified.
[2022-01-07] MEDS: iohexoL 350 MG/ML 100 ML INFUS..BTL IV (08:39)
== END 2022-01-07 07:41 | disposition home or self-care (01) ==
LOC: HO.CT 07:40
PROVIDERS: PCP Nurse Practitioner Family; Visit Provider Internal Medicine
DX: R06.02 Shortness of breath (principal); R07.0 Pain in throat
CPT/HCPCS: 70491; 71260; Q9967

== ENCOUNTER 2022-01-09 09:50 | Day surgery (SDC) | payer OTHER, SELFPAY ==
[2022-01-05 14:24] VITALS: BMI 26.2
--- NOTE | 2022-01-08 11:50 | HO.ANESPROP2 ---
Documented by User: Anali Oglesby NP 01/08/22 11:51 HPI - Anesthesia Eval Consult details Narrative: 56yo M for Upper Endoscopy PMFSH Active Problems Active Problems: All Active Problems (Updated 01/05/22 @ 14:23 by Gladis Jorge RN) Primary osteoarthritis of knees, bilateral (Acute) Itching (Acute) Right ankle pain (Acute) Ankle arthralgia (Acute) Acute sinusitis (Acute) Physical exam (Acute) Screening PSA (prostate specific antigen) (Acute) Dysphagia (Acute) Systolic murmur (Acute) Itching (Acute) Elevated ferritin (Acute) Dyslipidemia (Acute) Sinusitis, acute (Acute) GERD (gastroesophageal reflux disease) (Acute) Wheezing (Acute) Past Medical History Medical History (Updated 01/05/22 @ 14:23 by Gladis Jorge RN) Allergies COVID-19 Hypertension Surgical History Surgical History (Updated 01/05/22 @ 14:20 by Gladis Jorge RN) H/O colonoscopy Hx of arthroscopic knee surgery Hx of excision of mass Social History Social History Patient Tobacco Use Status: Former Tobacco user Quit Date: 2020 Tobacco use type: Cigar e-Cigarette/Vaping Use: Never Used Second Hand Smoke Exposure: No Use of substances other than those prescribed or required for medical reasons: No Are you DNR?: No Advance Directives: No Advance Directives Information Provided: Yes Current occupational status: employed 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 Allergies Allergy/AdvReac Type Severity Reaction Status Date / Time Biaxin Allergy Intermediate shortness Verified 01/05/22 14:18 of breath Penicillins Allergy Intermediate rash/hives Verified 01/05/22 14:18 Exam Exam Date and Time: January 08, 2022 1150 Height,Weight and Vital Signs: Height 6 ft Weight 87.543 kg Pertinent Lab Results Pertinent Lab Results: Laboratory Tests 12/24/21 12/24/21 12/25/21 07:51 07:51 13:00 WBC 6.3 Hgb 14.3 Hct 42.9 Plt Count 287 Sodium 141 Potassium 3.6 Chloride 106 Carbon Dioxide 26 BUN 14 Creatinine 0.84 Narrative Narrative: EKG 11/2021 Vent. Rate : 076 BPM ? ? Atrial Rate : 076 BPM ?? P-R Int : 150 ms? QRS Dur : 088 ms ? ? QT Int : 374 ms ? ? ? P-R-T Axes : 002 -07 014 degrees ?? QTc Int : 420 ms ? Normal sinus rhythm Normal ECG When compared with ECG of 06-NOV-2014 17:55, Nonspecific T wave abnormality no longer evident in Anterior leads Assessment and Plan Assessment Anesthesia Assessment: Chart Reviewed Documented by User: Addy Gonzalez MD 01/09/22 12:59 PMFSH Past Medical History Medical History (Updated 01/05/22 @ 14:23 by Gladis Jorge RN) Allergies COVID-19 Hypertension Functional capacity: independent ambulation Family History Family history of problems with anesthesia: No Surgical History Surgical History (Updated 01/05/22 @ 14:20 by Gladis Jorge RN) H/O colonoscopy Hx of arthroscopic knee surgery Hx of excision of mass History of Problems with Anesthesia: No Social History Social History Patient Tobacco Use Status: Former Tobacco user Quit Date: 2020 Tobacco use type: Cigar e-Cigarette/Vaping Use: Never Used Second Hand Smoke Exposure: No Use of substances other than those prescribed or required for medical reasons: No Are you DNR?: No Advance Directives: No Advance Directives Information Provided: Yes Current occupational status: employed 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 Allergies Allergy/AdvReac Type Severity Reaction Status Date / Time Biaxin Allergy Intermediate shortness Verified 01/05/22 14:18 of breath Penicillins Allergy Intermediate rash/hives Verified 01/05/22 14:18 Exam Airway Mallampati Class: III TM Dist: >3cm Neck ROM: Full Loose/Missing/Broken Teeth: Yes Heart: RRR Lungs: b/l breath sounds Assessment and Plan Assessment Anesthesia Assessment: Anesthesia Plan Discussed Final Anesthetic Review Family History of Problems with Anesthesia: No History of Problems with Anesthesia: No NPO: Yes ASA Class: II Final Preanesthetic Review: Meds/Allgs Chart Reviewed, Consent Obtained/Reviewed and Anes Risks/Benef Reviewed Patient Risk: Intermediate Procedure Risk: Intermediate Anesthetic Plan Anesthetic Plan: MAC: Disposition: Standard PACU
[2022-01-09 11:00] VITALS: BP 148/70; PULSE 79; RESP 18; TEMP 36.4; O2SAT 100
[2022-01-09] MEDS: Lactated Ringers 1,000 ML 100 ML IVCONT (11:09)
[2022-01-09 12:05] VITALS: BP 119/72; PULSE 60; RESP 16; TEMP 37.1; O2SAT 99
--- NOTE | 2022-01-09 12:12 | PM.OP ---
Brief Operative Note Date of Service: 01/09/22 Pre-op diagnosis: GERD, Dysphagia Post-op diagnosis: other (Hiatal hernia, R/O Bolden's) Procedure: EGD with biopsies Surgeon: Mike Manley Anesthesia: MAC Was an Fiber Machine Tender used for this Procedure?: No Estimated blood loss (mL): 2.0 Pathology: other (A. EG Junction at 38cm B. Gastric antrum) Condition: stable Disposition: PACU
[2022-01-09 12:20] VITALS: BP 122/72; PULSE 70; RESP 16; TEMP 37.1; O2SAT 99
--- NOTE | 2022-01-09 14:42 | OP_ITS ---
SURGEON: Mike Manley MD INDICATIONS: The patient presents for evaluation of intermittent throat discomfort and sense of dysphagia. Full consent was obtained from him for this, including risks of bleeding and perforation. PREOPERATIVE DIAGNOSIS: POSTOPERATIVE DIAGNOSIS: PROCEDURE PERFORMED: Esophagogastroduodenoscopy with biopsies. ESTIMATED BLOOD LOSS: COMPLICATIONS: ANESTHESIA: Monitored anesthesia care. ASSISTANTS: SPECIMENS: PREOPERATIVE DIAGNOSES: Throat discomfort and sense of dysphagia. POSTOPERATIVE DIAGNOSES: Throat discomfort and sense of dysphagia, hiatal hernia, rule out Bolden's esophagus, rule out gastritis. DESCRIPTION OF PROCEDURE: The patient was placed in the left lateral decubitus position. The Olympus video gastroscope was passed in the posterior oropharynx and upper esophagus under direct vision. The scope was passed slowly to the distal esophagus. The gastroesophageal junction appeared at 38 cm. There was some slight irregularity consistent with reflux and possible small areas of Bolden's mucosa. There was no evidence of any esophagitis, ulceration, nor mass. There was a small hiatal hernia. The scope was advanced to the pylorus and the duodenum was cannulated to the descending portion. The duodenum including the bulb appeared normal without mass or ulceration. The scope was withdrawn back in the stomach. The gastric antrum and body had some mild areas of erythema and edema, but no erosions or ulceration. There was good peristalsis. Biopsies were obtained from the gastric antrum. The scope was retroflexed visualizing the proximal stomach carefully, which appeared normal, without any sign of mass or ulceration. The scope was straightened and withdrawn back into the esophagus. Biopsies were obtained at the EG junction at 38 cm. Proximal to this, the esophageal mucosa appeared normal. At the very proximal esophagus just beneath the upper esophageal sphincter was a small patch of gastric heterotopia. Biopsies were not obtained given its very typical appearance. I did obtain a good visualization of the vocal cords and oropharyngeal area, which appeared normal. The scope was withdrawn from the patient. He tolerated the procedure well and was returned to the recovery area in stable condition. IMPRESSION: 1. Hiatal hernia, gastroesophageal reflux, rule out Bolden's esophagus. 2. Rule out gastritis. 3. 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 PLAN: The results of the biopsies will be checked. Given these findings and his symptoms, I shall start him on omeprazole 40 mg daily just to see if we can maximally treat any acid reflux and see if we can help improve his symptoms. He did have a recent CT scan of his neck and chest. The CT scan of the neck was unremarkable. The CT scan of the chest was also unremarkable, but there is the finding of what appears to be an incidental lymph node measuring 1.4 x 2.3 cm in the left axilla, but no other suspicious lymph nodes nor other abnormalities. There were some tiny pulmonary nodules as well, which did not appear to be clinically significant. I will discuss with him about possible referral to 1 of the surgeons to further evaluate the lymph node and see whether he would need some type of biopsy either directly or by ultrasound guidance. Of note, I did examine him today and I did not palpate any lymphadenopathy in the left axilla. This has been discussed with the patient and his brother. MD PORSCHE Cope/SARAH / [id number] MTDD
== END 2022-01-09 12:51 | disposition home or self-care (01) ==
PROVIDERS: PCP Nurse Practitioner Family; Visit Provider Internal Medicine
PROC: 0DJ08ZZ Inspection of Upper Intestinal Tract, Via Natural or Artificial Opening Endoscopic (ICD-10-PCS; CPT 43235; principal; 2022-01-09 10:50)
DX: K21.9 Gastro-esophageal reflux disease without esophagitis (principal); R13.14 Dysphagia, pharyngoesophageal phase; R63.4 Abnormal weight loss; Z68.26 Body mass index [BMI] 26.0-26.9, adult; K44.9 Diaphragmatic hernia without obstruction or gangrene; R59.0 Localized enlarged lymph nodes; R91.8 Other nonspecific abnormal finding of lung field; I10 Essential (primary) hypertension; Z79.899 Other long term (current) drug therapy
CPT/HCPCS: 43239; 88305; 88342

== ENCOUNTER → 2022-01-13 14:42 | Outpatient (BNVA) | payer OTHER, SELFPAY | PROVIDERS: PCP Nurse Practitioner Family; Referring Provider Nurse Practitioner Family; Visit Provider Surgery | DX: R59.1 Generalized enlarged lymph nodes (principal); L40.9 Psoriasis, unspecified | CPT/HCPCS: 99202 ==

== ENCOUNTER 2022-01-28 10:56 | Outpatient (REF) | payer OTHER, SELFPAY ==
--- NOTE | ~2022-01-28 | US_ITS ---
EXAMINATION: US-GUIDED LEFT AXILLARY LYMPH NODE BIOPSY CLINICAL INFORMATION: Enlarged left axillary lymph node. COMPARISON: CT chest with contrast 01/07/2022. TECHNIQUE: Following explaining ultrasound-guided fine-needle lymph node biopsy left axillary lymph node procedure, benefits and risk, a written consent was obtained. Patient was placed supine on ultrasound stretcher and preliminary ultrasound imaging was obtained through the left axilla with his left arm extended cephalad. An optimal site was selected along the skin and marked. The marked site was cleaned and draped in the usual sterile manner. 1% lidocaine was injected at puncture site. A 25-gauge needle attached to syringe was advanced through the skin under ultrasound guidance into the left axillary large lymph node, and a 3-pass biopsy was obtained. Complete hemostasis achieved at puncture site. Sterile Band-Aid applied postprocedure. FINDINGS: There is a moderate-sized left axillary lymph node measuring 2.7 x 1.44 cm with a central echogenic normal-appearing medulla. A 3-pass fine-needle biopsy aspiration of the left axillary largest lymph node was performed. US/US guided fine needle asp IMPRESSION: Successful ultrasound-guided left axillary lymph node fine-needle biopsy aspiration performed. Preliminary pathology results revealed lymphoid cells. Definite results are pending.
== END 2022-01-28 10:57 | disposition home or self-care (01) ==
LOC: HO.US 10:56
PROVIDERS: Radiology Diagnostic Radiology; Visit Provider Surgery
DX: R59.1 Generalized enlarged lymph nodes (principal)
CPT/HCPCS: 10005; 36415; 88172; 88173; 88177; 88184; 88185; 88305

== ENCOUNTER 2023-09-07 09:42 | Outpatient (REF) | payer OTHER, SELFPAY ==
[2023-09-07 13:17] LABS: MANUAL DIFF FLAG NO
[2023-09-07 13:18] LABS: Appearance Urine Clear; Color Urine Yellow; Glucose Urine UA Negative (Negative); Leukocyte Esterase Urine Negative (Negative); Nitrite Urine Negative (Negative); PH 7.5 (5.0-9.0); Urine Blood Negative (Negative); Urine Ketones Negative (Negative); Urine Protein Negative (Neg-Trace)
[2023-09-07 13:30] LABS: Basophils Absolute Auto 0.1 X10*3/uL (0.0-0.2); Basophils Percent Auto 1.1 % (0-2); Eosinophils Absolute Auto 0.4 X10*3/uL (0.0-0.4); Eosinophils Percent Auto 7.1 % (0-4); Hematocrit 43.7 % (42.0-52.0); Hemoglobin 14.8 g/dl (14.0-18.0); Imm Gran Abs Auto 0.01 X10*3/uL (0.00-0.03); Imm Gran Pct Auto 0.2 % (0.0-0.4); Lymphocytes Absolute Auto 2.4 X10*3/uL (1.2-4.9); Lymphocytes Percent Auto 38.8 % (20-40); Mean Corpuscular HGB Conc 33.9 g/dl (31.0-36.0); Mean Corpuscular Hemoglobin 30.6 pg (27.0-33.0); Mean Corpuscular Volume 90.3 fL (80.0-98.0); Mean Platelet Volume 9.7 fL (9.4-12.4); Monocytes Absolute Auto 0.6 X10*3/uL (0.1-1.2); Monocytes Percent Auto 10.1 % (2-11); Neutrophils Absolute Auto 2.7 x10*3/uL (2.0-8.3); Neutrophils Percent Auto 42.7 % (45-73); Platelet Count 297 X10*3/uL (160-400); Red Blood Count 4.84 X10*6/uL (4.60-5.80); White Blood Count 6.2 X10*3/uL (4.8-10.8)
[2023-09-07 14:01] LABS: Alanine Aminotransferase 40 U/L (0-40); Albumin Level 4.5 g/dL (3.5-5.0); Alkaline Phosphatase 71 U/L (39-117); Anion Gap 10 (12-20); Aspartate Amino Transferase 27 U/L (5-37); Bilirubin Total 0.6 mg/dL (0.0-1.0); Blood Urea Nitrogen 8 mg/dL (9-16); Calcium 9.6 mg/dL (8.4-10.2); Carbon Dioxide 29 mmol/L (22-29); Chloride 103 mmol/L (96-108); Cholesterol 237 mg/dL (<200); Estimated Glomerular Filt Rate > 60; Glucose Fasting 107 mg/dL (60-99); HDL Cholesterol 57 mg/dL (>40); LDL Cholesterol Calculated 154 mg/dL (<100); Potassium 4.2 mmol/L (3.3-5.1); Sodium 138 mmol/L (135-145); Total Protein 7.2 g/dL (6.5-8.0); Triglycerides 133 mg/dL (<150)
[2023-09-07 14:09] LABS: Prostate Specific Antigen Scr 0.58 ng/mL (<0.05-4.0)
[2023-09-07 14:28] LABS: TSH reflex Free T4 3.01 uIU/mL (0.32-4.0)
== END 2023-09-07 09:43 | disposition home or self-care (01) ==
LOC: HO.HMGCLDS 09:42
PROVIDERS: PCP Nurse Practitioner Family; Visit Provider Nurse Practitioner Family
DX: Z00.00 Encounter for general adult medical examination without abnormal findings (principal); Z12.5 Encounter for screening for malignant neoplasm of prostate
CPT/HCPCS: 36415; 80053; 80061; 81003; 84153; 84443; 85025

== ENCOUNTER 2023-09-29 16:07 | Outpatient (AMB) | payer MEDICAID, SELFPAY ==
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
[2023-09-29 16:14] VITALS: BP 136/74; PULSE 111; O2SAT 98; BMI 31.9
== END 2023-09-29 17:12 | disposition home or self-care (01) ==
PROVIDERS: Visit Provider Nurse Practitioner Family
DX: Z00.00 Encounter for general adult medical examination without abnormal findings (principal); R00.0 Tachycardia, unspecified
CPT/HCPCS: 93000; 99396

== ENCOUNTER 2025-05-15 10:22 | Outpatient (AMB) | payer MEDICAID, SELFPAY ==
--- NOTE | 2025-05-15 10:29 | MHC.PC.OV ---
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 Required: No Accompanied by: Self / Same As Patient Allergies Biaxin Allergy (Intermediate, Verified 05/15/25 10:31) shortness of breath Penicillins Allergy (Intermediate, Verified 05/15/25 10:31) rash/hives diltiazem Adverse Reaction (Mild, Verified 05/15/25 10:31) Angioedema Medication List - Last Reconciled 05/15/25 by MARYJANE Bullock-DANETTE amlodipine 10 mg PO DAILY atorvastatin 20 mg PO BEDTIME fluticasone propionate 50 mcg/actuation (Flonase Allergy Relief) 2 sprays intranasal DAILY ibuprofen 800 mg PO Q8H PRN 30 days loratadine (Claritin) 10 mg PO DAILY montelukast (Singulair) 10 mg PO QPM 90 days Tobacco use date assessed: 05/15/25 Dental Screening Dental Screen Date: 09/29/23 Did you have a dental visit in the last 12 months?: Yes Did you have a dental problem in the last 6 months where you did not have access to dental care?: No Was dental information given to patient?: Patient has dentist [facility] Medical History COVID-19 Allergies Hypertension Surgical History Status post right foot surgery Hx of arthroscopic knee surgery Hx of excision of mass H/O colonoscopy Social History Housing: Condominium Patient Tobacco Use Status: Never used Tobacco Tobacco use type: Cigar e-Cigarette/Vaping Use: Never Used Second Hand Smoke Exposure: No Current occupational status: employed Current occupation: [employer] - Right Handed Cognitive needs: No Hearing needs: No Vision needs: No Questionnaire PHQ-9 Over the last 2 weeks, how often have you been bothered by any of the following problems? 1. Little interest or pleasure in doing things: not at all 2. Feeling down, depressed, or hopeless: not at all 3. Trouble falling or staying asleep, or sleeping too much: several days 4. Feeling tired or having little energy: several days 5. Poor appetite or overeating: several days 6. Feeling bad about yourself - or that you are a failure or have let yourself or your family down: not at all 7. Trouble concentrating on things, such as reading the newspaper or watching television: not at all 8. Moving or speaking so slowly that other people could have noticed. Or the opposite - being so fidgety or restless that you have been moving around a lot more than usual: not at all 9. Thoughts that you would be better off or of hurting yourself in some way: not at all Total score: 3 Depression Screening Interpretation: Negative Depression Screening Done: Yes 70752 - PHQ-9 Billing: Yes Source: Developed by Drs. Mike Marsh, Patricia Tafoya, Eliot Horowitz and colleagues, with an educational henrietta from [employer]. Thrive Questionnaire Date Thrive assessed: 12/15/21 Physical exam (Primary Care) Vital Signs: Last Vital Signs Pulse 89 05/15/25 10:31 Resp 16 05/15/25 10:31 BP 126/72 05/15/25 10:31 Pulse Ox 98 05/15/25 10:31 Oxygen Delivery Method Room Air 05/15/25 10:31 Tobacco/Smoking Status: Tobacco use Status Tobacco use date assessed 05/15/25 05/15/25 10:35 Patient Tobacco Use Status Never used Tobacco 05/15/25 10:31 Tobacco use type Cigar 05/15/25 10:31 e-Cigarette/Vaping Use Never Used 05/15/25 10:31 PHQ-9: PHQ-9 Score PHQ-9: Total score 3 05/15/25 10:35 Depression Screening Interpretation: Negative Thrive Assessment: Date of Thrive Assessment Date Thrive assessed 12/15/21 05/15/25 10:31 Coding Level of Care Code Est Pt Level 3 (20506) Diagnoses Carotid stenosis, bilateral I65.23 HTN (hypertension) I10 Screening PSA (prostate specific antigen) Z12.5 Screening for colon cancer Z12.11 BPPV (benign paroxysmal positional vertigo) H81.10 Additional Codes PHQ-9 - 61544 - PHQ-9 Billing: Yes ([id number]) Assessment & Plan Assessment & Plan (1) Carotid stenosis, bilateral: Code(s): I65.23 - Occlusion and stenosis of bilateral carotid arteries Category: Medical (2) HTN (hypertension): Code(s): I10 - Essential (primary) hypertension Category: Medical (3) Screening PSA (prostate specific antigen): Code(s): Z12.5 - Encounter for screening for malignant neoplasm of prostate Category: Medical Plan: . (4) Screening for colon cancer: Code(s): Z12.11 - Encounter for screening for malignant neoplasm of colon Category: Medical (5) BPPV (benign paroxysmal positional vertigo): Code(s): H81.10 - Benign paroxysmal vertigo, unspecified ear Category: Medical Plan . Orders: Orders Comprehensive [place]. Panel Fast Today I10 - Essential (primary) hypertension, I65.23 - Occlusion and stenosis of bilateral carotid arteries TSH reflex Free T4 Today I10 - Essential (primary) hypertension, I65.23 - Occlusion and stenosis of bilateral carotid arteries UA CC w/rflx Micro + Cult Today I10 - Essential (primary) hypertension, I65.23 - Occlusion and stenosis of bilateral carotid arteries Lipid Panel Today I10 - Essential (primary) hypertension, I65.23 - Occlusion and stenosis of bilateral carotid arteries US carotid duplex BI Today I65.23 - Occlusion and stenosis of bilateral carotid arteries Complete Blood Count Auto Diff Today I10 - Essential (primary) hypertension, I65.23 - Occlusion and stenosis of bilateral carotid arteries Prostate Specific Antigen Scr Today Z12.5 - Encounter for screening for malignant neoplasm of prostate Referrals Gastroenterology Referral Z12.11 - Encounter for screening for malignant neoplasm of colon
[2025-05-15 10:31] VITALS: BP 126/72; PULSE 89; RESP 16; O2SAT 98
--- OUTSIDE RECORDS SUMMARY | 2025-05-15 11:26 | XMS_ITS | Patient Health Record ---
Author Organization [facility] Address [address] [place] [address] Care Team Providers Care Clinical Team Lead Name Role Phone Martin Antoine MD Primary Care Provider Mike Alexandre Unavailable [phone] PABLITO LANGFORD Unavailable Unavailable Allergies Allergen (clinical drug ingredient) Drug/Non Drug Allergy documented on EMR Reaction Allergy Type Onset Date Status Penicillin Unknown Drug Allergy Active Reason For Referral No Information Medications Medication SIG (Take, Route, Frequency, Duration) Notes Start Date End Date Status Famotidine 20 MG Oral for 30 N ot-Taking Cetirizine HCl 10 MG 1 tablet Orally Onc e a day for 30 day(s) Active amLODIPine Besylate 10 MG TAKE 1 TABLET BY MOUTH ONCE DAILY Oral for 30 Active Montelukast Sodium 10 MG Oral for 90 Active Immunizations Vaccine Route Administration Date Status Comme nts Influenza Unknown 12/25/2021 Refused Social History Alcohol Screen Question Answer Notes Did you have a drink containing alcohol in the p ast year? No Points 0 Interpretation Negative Section Notes: Occasional cigar; 3 beers QD Occasional cigars; 3 beers Q D/ update 12/25/2021 had not had etoh in 5 months Occasional cigars; 3 beers Q D/ update 12/25/2021 had not had etoh in 5 months Problems Problem Type SNOMED Code ICD Code Onset Dates Problem Status W/U Status Risk Notes Problem [id number] Encounter for screening for malignant neoplasm of colon (Z12.11) Active confirmed Problem 91748313 Weight loss (R63.4) Active confirmed Problem 236533489 Shortness of flores ath (R06.02) Active confirmed Problem 76541739 Preprocedural examination (Z01.818) Active confirmed Problem 038930442 Elevated liver enzymes (R74.8) Active confirmed Problem 74296880 Pharyngoesophage al dysphagia (R13.14) Active confirmed Problem Esophageal reflux finding (744061986) Gastroesophageal reflux (K21.9) Active confirmed Problem 072756021 Throat discomfor t (R07.0) Active confirmed Problem 123538029 Gastroesophageal reflux disease, unspecified whether esophagitis present (K21.9) Active confirmed Plan Of Treatment Pending Test Test Name Order Date BUN 12/25/2021 CREATININE 12/25/2021 CT CHEST WITH CONTRAST 12/25/2021 CT NECK WITH CONTRAST 12/25/2021 Future Test Test Name Order Date COLONOSCOPY 07/25/2015 UPPER GI ENDOSCOPY 12/25/2021 Insurance Providers Payer Name Payer Address Payer Phone Subscriber Number Group Number Insured Name Patient Relationship to Insured Coverage Start Date Coverage End Date [facility] [employer] [facility] [address] [address] [place], [place] [id number] [place] Self - patient is the insured Medical (General) History Medical History History ICD Code HTN Sinus infection Denies MT,DM,CVA,Lung disease,renal dise ase Slight elevation of the GGT, with an otherwise completely normal liver profile and negative liver workup Negative screening colonoscopy in 04/2016 An upper endoscopy in January of 2022 revealed only a small hiatal hernia, and without any sign of esophagitis, Bolden's esophagus, ulcer disease, nor H. pylori U/S-guided Biopsy of a left axilla lymph node was benign in 2021 CT scan of neck and chest in 2021 were n egative Surgical History Surgery Date(Month/Year) Knee surgery--right .
== END 2025-05-15 12:40 | disposition home or self-care (01) ==
LOC: HO.HMCC 10:22
PROVIDERS: PCP Nurse Practitioner Family; Visit Provider Nurse Practitioner Family
DX: I65.23 Occlusion and stenosis of bilateral carotid arteries (principal); I10 Essential (primary) hypertension; Z12.5 Encounter for screening for malignant neoplasm of prostate; Z12.11 Encounter for screening for malignant neoplasm of colon; H81.10 Benign paroxysmal vertigo, unspecified ear

== ENCOUNTER → 2025-05-15 10:22 | Outpatient (BNVA) | payer MEDICAID, SELFPAY | PROVIDERS: PCP Nurse Practitioner Family; Visit Provider Nurse Practitioner Family | DX: I65.23 Occlusion and stenosis of bilateral carotid arteries (principal); I10 Essential (primary) hypertension; H81.10 Benign paroxysmal vertigo, unspecified ear | CPT/HCPCS: 96127; 99212 ==

== ENCOUNTER 2025-07-06 13:49 | Outpatient (REF) | payer MEDICARE, MEDICAID, SELFPAY ==
--- NOTE | ~2025-07-06 | US_ITS ---
EXAMINATION: US EXTRACRANIAL CAROTID DUPLEX, BILATERAL CLINICAL INFORMATION: Occlusion and stenosis, bilateral carotic arteries. I 65.23. COMPARISON: Correlated to CT soft tissue neck dated January 07, 2022. TECHNIQUE: Real-time ultrasound and Doppler techniques (integrating B-mode 2-D vascular images, Doppler spectral analysis and color-flow Doppler imaging) were utilized to interrogate the extracranial carotid arteries, the vertebral arteries and proximal subclavian arteries bilaterally. The degree of stenosis is determined by criteria similar to NASCET. FINDINGS: Right Side: 1. There is small mixed atherosclerotic plaque seen in the bifurcation/proximal ICA region. 2. The common carotid artery PSV proximally is 146 cm/s and distally 91 cm/s. 3. The proximal internal carotid artery velocities are 66 cm/s systolic and 20 cm/s diastolic. 4. The proximal external carotid artery PSV is 94 cm/s. 5. The vertebral artery shows antegrade flow. 6. The subclavian artery waveforms are triphasic. ICA/CC ratio: 0.45. Left Side: 1. There is small noncalcified atherosclerotic plaque seen in the bifurcation/proximal ICA region. 2. The common carotid artery PSV proximally is 128 cm/s and distally 92 cm/s. 3. The proximal internal carotid artery velocities are 75 cm/s systolic and 24 cm/s diastolic. 4. The proximal external carotid artery PSV is 108 cm/s. 5. The vertebral artery shows antegrade flow. 6. The subclavian artery waveforms are triphasic. ICA/CC ratio: 0.60. US/US carotid duplex BI IMPRESSION: 1. RIGHT: Small mixed plaque representing 0-49% stenosis by ultrasound criteria. 2. LEFT: Small noncalcified plaque representing 0-49% stenosis. Electronically signed by: Darwin Lozano MD 07/06/2025 02:42 PM EDT
--- OUTSIDE RECORDS SUMMARY | 2025-07-06 13:59 | XMS_ITS | Patient Health Record ---
Author Organization [facility] Address [address] [place] [address] Care Team Providers Care Health Promotion Specialist Name Role Phone Martin Antoine MD Primary Care Provider Mike Alexandre Unavailable [phone] PABLITO LANGFORD Unavailable Unavailable Allergies Allergen (clinical [...] Problem Status W/U Status Risk Notes Problem 144901294 Encounter for screening for malignant neoplasm of colon (Z12.11) Active confirmed Problem 71235242 Weight loss (R63.4) Active confirmed Problem 244196264 Shortness of flores ath (R06.02) Active confirmed Problem 71891775 Preprocedural examination (Z01.818) Active confirmed Problem 423159207 Elevated liver enzymes (R74.8) Active confirmed Problem 79084689 Pharyngoesophage al dysphagia (R13.14) Active confirmed Problem Esophageal reflux finding (133612915) Gastroesophageal reflux (K21.9) Active confirmed Problem 557598919 Throat discomfor t (R07.0) Active confirmed Problem 253362714 Gastroesophageal reflux disease, unspecified whether esophagitis present [...] Insured Coverage Start Date Coverage End Date [facility] [address] [address] [place], [place] [phone] [id number] [place] Self - patient is the insured MEDICAID OF [facility] [address] [place] [address] [id number] [place] Self - patient is the insured Medical (General) History Medical History History ICD Code HTN Sinus infection Denies ME,DM,CVA,Lung disease,renal dise ase Slight elevation of the [...]
== END 2025-07-06 13:50 | disposition home or self-care (01) ==
LOC: HO.HMGCX 13:49
PROVIDERS: PCP Nurse Practitioner Family; Visit Provider Nurse Practitioner Family
DX: I65.23 Occlusion and stenosis of bilateral carotid arteries (principal)
CPT/HCPCS: 93880

== ENCOUNTER → 2025-07-06 13:56 | Outpatient (BNV) | payer MEDICARE, MEDICAID, SELFPAY | PROVIDERS: PCP Nurse Practitioner Family; Visit Provider Radiology Diagnostic Radiology | DX: I65.23 Occlusion and stenosis of bilateral carotid arteries (principal) | CPT/HCPCS: 93880 ==